=== PATIENT | male | born 1975 | race Caucasian/White ===

== ENCOUNTER 2022-07-16 07:54 | Emergency (ER) | payer OTHER, SELFPAY ==
--- NOTE | ~2022-07-16 | CT_ITS ---
EXAMINATION: CT FACIAL BONES WITHOUT CONTRAST CLINICAL INFORMATION: Right periorbital cellulitis. COMPARISON: None TECHNIQUE: Multiple axial images of the facial bones were obtained without the administration of intravenous contrast. Coronal and sagittal reformatted images were obtained. This CT examination was performed using dose optimization techniques as appropriate, variously including the following: *Automated exposure control *Adjustment of mA and/or kV according to patient size (this includes techniques or standardized protocols for targeted exams where dose is matched to indication/reason for exam; i.e. extremities or head) *Use of iterative reconstruction technique DLP: 527 mGy-cm FINDINGS: Mild to moderate asymmetric soft tissue swelling and edema is seen involving the right cheek extending to the right infraorbital region. No definitive focal fluid collection. The frontal bones are intact. An intramedullary sclerotic focus with narrow zone of transition is seen in the right frontal bone measuring 0.8 cm (image 213, series 5). The bony orbits and intraorbital contents are unremarkable. The paranasal sinuses show moderate mucosal thickening in the right maxillary sinus and minimal mucosal thickening in the left maxillary sinus. No air-fluid level. The remainder the paranasal sinuses are clear. Bilateral maxillary antrostomies are patent. The right ostiomeatal complex is occluded by mucosal thickening. The left ostiomeatal complexes is patent. The nasal bones are intact. Mild anterior to mid nasal septal deviation, apex of the right. The nasal septum is intact. The mandible, temporal mandibular joints and pterygoid plates are unremarkable. CT/CT facial bones wo IV con IMPRESSION: 1. Mild to moderate right cheek/infraorbital swelling without focal fluid collection or acute underlying osseous abnormality. 2. Maxillary sinus inflammatory changes, right greater than left as detailed above.
[2022-07-16 07:56] VITALS: BP 192/108; PULSE 97; RESP 18; O2SAT 98; BMI 38.0
--- NOTE | 2022-07-16 09:05 | ED.DENTAL ---
HPI - Dental/Oral General Chief complaint: Dental/Oral Stated complaint: Dental Abscess Time Seen by Provider: 07/16/22 08:08 Source: patient Mode of arrival: ambulatory History of Present Illness HPI Narrative: 47-year-old male who is visiting from [place] presents with no dental infection who began having symptoms on Tuesday and then noted progressive pain and swelling to the right side of his face and now on vault is a right cheek and up into the inferior aspect of his eye. Patient reports significant pain but denies any difficulty with breathing or swallowing at this time and denies any fevers or chills. Related Data Previous Rx's Medication Instructions Recorded amoxicillin 875 mg-potassium 1 tab PO Q12H 7 days #14 tabs 07/16/22 clavulanate 125 mg tablet Allergies Allergy/AdvReac Type Severity Reaction Status Date / Time latex Allergy Swelling Verified 07/16/22 07:59 Review of Systems Review of Systems: Pertinent positives and negatives as stated in HPI 10 point review of systems otherwise negative. [facility] Past Medical History Source: nursing notes reviewed Social History Social History Advance Directives: No Advance Directives Information Provided: Yes Physical Exam Vital Signs: Vital Signs: Last Vital Signs Pulse 97 07/16/22 07:56 Resp 18 07/16/22 07:56 BP 192/108 H 07/16/22 07:56 Pulse Ox 98 07/16/22 07:56 O2 Del Method 07/16/22 07:56 BMI result Body Mass Index 38.0 VITAL SIGNS: Reviewed. GENERAL: Well developed, well nourished, in no acute distress. HEAD: Normocephalic/atraumatic EYES: PERRLA, EOMI but significant swelling of the right maxilla, facial cellulitis, extending up into the infraorbital area without pain on eye movement EARS: Ext canals without abnormality, TMs non-bulging and non-erythematous NOSE: Nares patent bilateral OROPHARYNX: no oral lesions noted, posterior pharynx clear but noted gingival swelling and minimal tooth left in the right upper ?I tooth?, no trismus NECK: Supple, no adenopathy LUNGS: Normal breath sounds. No adventitious sounds or accessory muscle use. SpO2<98> CARDIOVASCULAR: Regular rate and rhythm without noted murmurs. ABDOMEN: Soft, non-tender, non-distended with bowel sounds. MUSCULOSKELETAL: No tenderness, deformities, or effusions noted on gross inspection. EXTREMITIES: No cyanosis, clubbing or edema. SKIN: Inspection of the skin reveals no rashes NEUROLOGIC: Alert and oriented x 4. Strength and sensation to light touch were grossly intact x 4. Course Course Course Narrative: 47-year-old male with history and clinical presentation consistent with facial cellulitis related to dental infection of the right upper tooth that has extended cephalad into the right maxillary and infraorbital area without obvious evidence of orbital cellulitis or palsy. Patient will receive combination analgesics as well as antibiotics and will pursue CT of the face to identify extent of inflammation or possible abscess pockets amenable to drainage. Review of all investigations without evidence of discrete fluid collection that is amenable to access. Patient received combination analgesics as well as initial antibiotics and was given strict return precautions in sent home with remaining course of antibiotics. Medications Administered Discontinued Medications Generic Name Dose Route Start Last Admin Trade Name Freq PRN Reason Stop Dose Admin Acetaminophen 975 mg 07/16/22 09:04 07/16/22 09:14 Acetaminophen 325 Mg Tablet PO 07/16/22 09:05 975 mg ONCE ONE Administration Amoxicillin/Clavulanate Potassium 875 mg 07/16/22 09:04 07/16/22 09:15 Amoxicillin/Potassium Clav 875 Mg Tablet PO 07/16/22 09:05 875 mg ONCE ONE Administration Ketorolac Tromethamine 15 mg 07/16/22 09:04 07/16/22 09:15 Ketorolac Tromethamine 15 Mg/Ml Vial IM 07/16/22 09:05 15 mg ONCE ONE Administration Discharge Plan Discharge Clinical Impression: Dental abscess, Cellulitis of face Patient Disposition: Home, Self-Care Instructions: Dental Abscess (ED), Cellulitis (ED) Additional Instructions: 1. Tylenol 1000 mg, orally, every 6 hours as needed for pain control. Do not exceed 4000 mg within 24 hours. 2. Ibuprofen 400 mg, orally with milk or food, every 6 hours as needed for pain control. I recommend that you take this with Tylenol for added symptom relief. 3. Apply warm compresses to your face to improve the swelling, 3 to 4 times a day. 4. Please complete the entire course of antibiotics as prescribed. Must go to a dentist within the next 2-3 days. Return to the ER for any worsening of your symptoms. Prescriptions: New amoxicillin-pot clavulanate 875-125 mg tablet 1 tab PO Q12H 7 Days Qty: 14 0RF
[2022-07-16] MEDS: Acetaminophen 325 MG TABLET 975 MG PO (09:14)
[2022-07-16] MEDS: Amoxicillin/Potassium Clav 875 MG TABLET PO (09:15)
[2022-07-16] MEDS: Ketorolac Tromethamine 15 MG/ML VIAL IM (09:15)
[2022-07-16 10:18] VITALS: BP 145/86; PULSE 87; RESP 17; TEMP 37.1; O2SAT 95
== END 2022-07-16 10:23 | disposition home or self-care (01) ==
PROVIDERS: Emergency Provider Student in an Organized Health Care Education/Training Program
DX: K04.7 Periapical abscess without sinus (principal); K12.2 Cellulitis and abscess of mouth; R51.9 Headache, unspecified
CPT/HCPCS: 70486; 96372; 99283; 99284; J1885